=== PATIENT | male | born 1980 | race Hispanic/Latino ===

== ENCOUNTER 2016-09-08 20:59 | Emergency (ER) | payer BC ==
[2016-09-08 22:06] VITALS: BMI 39.2
[2016-09-08 22:10] VITALS: TEMP 98.3
--- NOTE | 2016-09-09 00:41 | ED PDOC ---
Arrival/HPI - General Chief Complaint: Lower Extremity Problem/Injury Time Seen by Provider: 09/08/16 22:22 Historian: Patient - History of Present Illness Narrative History of Present Illness (Text): 09/09/16 00:46 36yr old male with prior hx of dvt in right leg 5 years ago presents today with 3 day history of pain and swelling in the right leg. pt is concerned that he has recurrent dvt. pt denies fever/chills. no cp or sob. denies numbness, weakness, or tingling in the extremity. pt states he is supposed to wear compression stockings but hasnt worn them in a few days. pt c/o crampy pain to the anterior thigh. denies trauma or injury. no other complaints. Past Medical History - Provider Review Nursing Documentation Reviewed: Yes - Travel History Have you recently traveled outside [place] w/in the past 3 mons?: No - Infectious Disease Hx of Infectious Diseases: None - Cardiac Hx Hypertension: Yes - Pulmonary Hx Sleep Apnea: Yes - Endocrine/Metabolic Other/Comment: DVT R Leg - Psychiatric Hx Substance Use: No - Surgical History Hx Tonsillectomy: Yes - Anesthesia Hx Anesthesia: No Family/Social History - Physician Review Nursing Documentation Reviewed: Yes Family/Social History: Unknown Family HX Smoking Status: Never Smoked Hx Alcohol Use: No Hx Substance Use: No Allergies/Home Meds Allergies/Adverse Reactions: Allergies No Known Allergies Allergy (Verified 09/08/16 22:06) Review of Systems - Review of Systems Constitutional: absent: Fatigue, Fevers Respiratory: absent: SOB, Cough Cardiovascular: absent: Chest Pain, Palpitations Gastrointestinal: absent: Abdominal Pain, Nausea, Vomiting Genitourinary Male: absent: Dysuria Musculoskeletal: Arthralgias (right leg pain) Skin: absent: Rash, Pruritis Neurological: absent: Headache, Dizziness Physical Exam Vital Signs Reviewed: Yes Vital Signs Temp Pulse Resp BP Pulse Ox 09/08/16 22:10 98.3 F 78 18 137/84 93 L Temperature: Afebrile Blood Pressure: Normal Pulse: Regular Respiratory Rate: Normal Appearance: Positive for: Well-Appearing, Non-Toxic, Comfortable Pain Distress: None Mental Status: Positive for: Alert and Oriented X 3 - Systems Exam Head: Present: Atraumatic Mouth: Present: Moist Mucous Membranes Neck: Present: Normal Range of Motion Respiratory/Chest: Present: Clear to Auscultation, Good Air Exchange. No: Respiratory Distress, Accessory Muscle Use Cardiovascular: Present: Regular Rate and Rhythm, Normal S1, S2. No: Murmurs Upper Extremity: Present: Normal Inspection Lower Extremity: Present: Edema, NORMAL PULSES, Normal ROM, Tenderness (right leg; + minimal tenderness over anterior thigh; no ecchymosis; full rom of hip and knee. no hip tenderness. + calf edema, no calf tenderness. sensation and distal pulses intact . cap refill <2. ), Neurovascularly Intact, Capillary Refill < 2 s. No: CALF TENDERNESS, Swelling, Erythema, Deformity, Temperature Abnormalties Neurological: Present: Speech Normal, Gait Normal Skin: Present: Warm, Dry, Normal Color. No: Rashes Psychiatric: Present: Alert, Oriented x 3 Medical Decision Making ED Course and Treatment: 09/09/16 00:50 Patient is nontoxic well-appearing in no distress with stable vital signs lungs are clear to auscultation bilaterally. Venous duplex of the right lower extremity; no dvt verbal report from US tech pt refused any medications for pain. Patient reassessment; patient is nontoxic well-appearing in no distress with stable vital signs I discussed the results with patient about followup with a primary care physician within the next 2 days as well as the vascular surgeon and his home theatre technician. I've advised return if symptoms worsen persist or if there's concerning symptoms develop. i have advised the patient to repeat the US in 1 week if symptoms continue. Patient verbalizes understanding of discharge instructions and need for immediate followup. all aspects of this case were discussed the attending of record. Impression: Leg pain Motrin every 6 hours as needed for pain increase fluids Follow-up with the primary care physician within the next 2 days Follow up with the vascular surgeon within the next 2 days Follow-up with your home theatre technician within the next 2 days Return immediately if symptoms worsen,, persist, or if new concerning symptoms develop - RAD Interpretation Radiology Orders: 09/08/16 22:30 DUPLEX LOWER EXTRM VEIN RIGHT [US] Stat Disposition/Present on Arrival - Present on Arrival Any Indicators Present on Arrival: No History of DVT/PE: No History of Uncontrolled Diabetes: No Urinary Catheter: No History of Decub. Ulcer: No History Surgical Site Infection Following: None - Disposition Have Diagnosis and Disposition been Completed?: Yes Diagnosis: Leg pain Disposition: HOME/ ROUTINE Disposition Time: 00:35 Patient Plan: Discharge Patient Problems: Current Active Problems Problem Status Diagnosed Leg pain Acute Condition: GOOD Discharge Instructions (ExitCare): Leg Pain (ED) Additional Instructions: Motrin every 6 hours as needed for pain increase fluids Follow-up with the primary care physician within the next 2 days Follow up with the vascular surgeon within the next 2 days Follow-up with your home theatre technician within the next 2 days Return immediately if symptoms worsen,, persist, or if new concerning symptoms develop Referrals: Zion Lopez MD [Primary Care Provider] - Follow up with primary You Rashid MD [Staff Provider] - Follow up with primary Reagan Francis MD [Staff Provider] - Follow up with primary Forms: WORK NOTE
[2016-09-09 00:45] VITALS: PULSE 84; O2SAT 97
[2016-09-09 00:52] VITALS: BP 138/75; RESP 16
--- NOTE | 2016-09-09 18:55 | US ---
PROCEDURE: Right lower extremity venous US HISTORY: Leg pain and swelling. Evaluate for DVT. PHYSICIAN(S): You Rashid M.D. TECHNIQUE: Duplex sonography and color-flow Doppler with graded compression were used to evaluate the deep venous system of the right lower extremity. FINDINGS: The visualized deep venous system of the right lower extremity is sonographically normal and compressible. Normal waveforms and augmentation are seen. There is no sonographic evidence for deep venous thrombosis in the visualized segments of the right lower extremity. IMPRESSION: 1. No sonographic evidence for deep venous thrombosis in the visualized segments of the right lower extremity.
== END 2016-09-09 00:52 | disposition home or self-care (01) ==
LOC: ED 20:59
DX: M79.604 Pain in right leg (principal); I10 Essential (primary) hypertension; Z86.718 Personal history of other venous thrombosis and embolism